=== PATIENT | male | born 1980 | race Caucasian/White ===

== ENCOUNTER 2020-03-07 11:28 | Outpatient (CLI) | payer OTHER, MEDICAID ==
--- NOTE | 2020-03-07 13:50 | XRAY Report ---
PROCEDURE: Lumbar Spine 2 View INDICATIONS: ACUTE RT SIDE LOW BACK PAIN, ACUTE RT HIP PAIN TECHNIQUE: 3 views of the lumbar spine were acquired. COMPARISON: None. FINDINGS: Bones: 5 [id number] vertebrae are present. There is a rudimentary disc at S1-S2. The lowest vi sualized ribs is well-developed and considered the T12 rib. There is slightly bony alignment. No donny tebral body compression fractures. No suspicious bony lesions. Soft tissues: Overlying bowel gas pattern is normal. No suspicious soft tissue calcifications. IMPRESSION: Rudimentary disc at S1-S2 which can predispose to low back pain. No trauma or subluxatio n found. For the purposes of this examination the lowest fully developed rib is prominent in size and considered associated with T12. Reviewed by: Alfred Charlton MD on 03/07/2020 1:49 PM PDT Approved by: Alfred Charlton MD on 03/07/2020 1:49 PM PDT Station ID: [id number]
--- NOTE | 2020-03-07 14:04 | XRAY Report ---
PROCEDURE: Hips 2V BILAT INDICATIONS: ACUTE RT SIDE LOW BACK PAIN, ACUTE RT HIP PAIN TECHNIQUE: 3 views of the hip were acquired. COMPARISON: None FINDINGS: Bones: No fractures or dislocations. No suspicious bony lesions. The visualized pelvic ring appear s intact. Symmetric hip joint osteoarthritis is present, mild bilaterally. Soft tissues: No suspicious soft tissue calcifications or masses. IMPRESSION: No trauma found. Symmetric mild hip joint osteoarthritis is incidentally noted. Reviewed by: Alfred Charlton MD on 03/07/2020 2:03 PM PDT Approved by: Alfred Charlton MD on 03/07/2020 2:03 PM PDT Station ID: [id number]
== END 2020-03-07 11:29 | disposition home or self-care (01) ==
LOC: DI.S 11:28
PROVIDERS: ATTEND Physician Assistant
DX: M51.87 Other intervertebral disc disorders, lumbosacral region (principal); M16.0 Bilateral primary osteoarthritis of hip
CPT/HCPCS: 72100; 73521

== ENCOUNTER 2021-10-24 08:22 | Outpatient (CLI) | payer MEDICAID ==
[2021-10-24 13:56] LABS: BASOPHILS % (AUTO) 0.6 %; EOSINOPHILS # (AUTO) 0.3 10^3/uL (0.0-0.7); EOSINOPHILS % (AUTO) 6.1 %; HCT - HEMATOCRIT 44.7 % (42.0-52.0); HGB - HEMOGLOBIN 15.2 g/dL (14.0-18.0); LYMPHOCYTES # (AUTO) 1.1 10^3/uL (1.5-3.5); LYMPHOCYTES % (AUTO) 22.5 %; MEAN CORPUSCULAR HEMOGLOBIN 29.3 pg (27.0-31.0); MEAN CORPUSCULAR VOLUME 86.1 fL (80.0-94.0); MEAN PLATELET VOLUME 9.7 fL (7.4-11.4); MONOCYTES # (AUTO) 0.6 10^3/uL (0.0-1.0); MONOCYTES % (AUTO) 12.5 %; NEUTROPHILS # (AUTO) 2.8 10^3/uL (1.5-6.6); NEUTROPHILS % (AUTO) 57.9 %; PLT - PLATELET COUNT 246 10^3/uL (130-450); RED BLOOD COUNT 5.19 10^6/uL (4.70-6.10); RED CELL DISTRIBUTION WIDTH 12.4 % (12.0-15.0); WHITE BLOOD COUNT 4.8 x10^3/uL (4.8-10.8)
[2021-10-24 14:37] LABS: ALBUMIN 4.5 g/dL (3.2-5.5); ALBUMIN/GLOBULIN RATIO 1.7 (1.0-2.2); ALKALINE PHOSPHATASE 49 IU/L (42-121); ALT ALANINE AMINOTRANSFERASE 29 IU/L (10-60); AST ASPARTATE AMINOTRANSFERASE 35 IU/L (10-42); BILIRUBIN,TOTAL 0.9 mg/dL (0.2-1.0); BUN - BLOOD UREA NITROGEN 12 mg/dL (6-20); CALCIUM 9.2 mg/dL (8.5-10.3); CARBON DIOXIDE - CO2 28 mmol/L (21-32); CHLORIDE 104 mmol/L (101-111); CREATININE 0.9 mg/dL (0.6-1.2); GFR - MDRD 93 (>89); GLUCOSE 84 mg/dL (70-100); LIPASE 36 U/L (22-51); POTASSIUM 4.2 mmol/L (3.5-5.0); SODIUM 139 mmol/L (135-145); TOTAL PROTEIN 7.2 g/dL (6.7-8.2)
[2021-10-24 14:38] LABS: CRP - C-REACTIVE PROTEIN < 1.0 mg/dL (0-1.0)
== END 2021-10-24 08:23 | disposition home or self-care (01) ==
LOC: LAB.S 08:22
PROVIDERS: ATTEND Registered Nurse
DX: R10.11 Right upper quadrant pain (principal); R19.7 Diarrhea, unspecified
CPT/HCPCS: 36415; 80053; 83690; 85025; 86140

== ENCOUNTER 2021-10-28 08:00 | Outpatient (CLI) | payer MEDICAID ==
[2021-10-28 15:22] LABS: FECAL OCCULT BLOOD (FIT) NEGATIVE (NEGATIVE)
[2021-10-28 15:36] LABS: H. PYLORIS ANTIGEN STL NEGATIVE (Negative)
[2021-10-30 16:08] LABS: GIARDIA LAMBLIA AG EIA Negative (Negative)
== END 2021-10-28 23:59 | disposition home or self-care (01) ==
LOC: LAB.S 08:00
PROVIDERS: ATTEND Registered Nurse
DX: R10.11 Right upper quadrant pain (principal); R19.7 Diarrhea, unspecified
CPT/HCPCS: 82274; 87045; 87046; 87177; 87328; 87329; 87338; 87427; 87493

== ENCOUNTER 2022-08-27 14:02 | Outpatient (CLI) | payer MEDICAID ==
[2022-08-27 19:51] LABS: BASOPHILS # (AUTO) 0.1 10^3/uL (0.0-0.1); BASOPHILS % (AUTO) 1.1 %; EOSINOPHILS # (AUTO) 0.5 10^3/uL (0.0-0.7); HGB - HEMOGLOBIN 14.5 g/dL (14.0-18.0); LYMPHOCYTES # (AUTO) 1.8 10^3/uL (1.5-3.5); LYMPHOCYTES % (AUTO) 32.7 %; MEAN CORPUSCULAR HEMOGLOBIN 28.5 pg (27.0-31.0); MEAN CORPUSCULAR HGB CONC 33.7 g/dL (32.0-36.0); MEAN CORPUSCULAR VOLUME 84.5 fL (80.0-94.0); MEAN PLATELET VOLUME 9.8 fL (7.4-11.4); MONOCYTES # (AUTO) 0.5 10^3/uL (0.0-1.0); MONOCYTES % (AUTO) 9.2 %; NEUTROPHILS # (AUTO) 2.6 10^3/uL (1.5-6.6); NEUTROPHILS % (AUTO) 47.8 %; PLT - PLATELET COUNT 230 10^3/uL (130-450); RED BLOOD COUNT 5.09 10^6/uL (4.70-6.10); RED CELL DISTRIBUTION WIDTH 12.7 % (12.0-15.0); WHITE BLOOD COUNT 5.4 x10^3/uL (4.8-10.8)
[2022-08-27 20:08] LABS: ALBUMIN 4.5 g/dL (3.2-5.5); ALKALINE PHOSPHATASE 47 IU/L (42-121); ALT ALANINE AMINOTRANSFERASE 28 IU/L (10-60); AST ASPARTATE AMINOTRANSFERASE 24 IU/L (10-42); BILIRUBIN,TOTAL 0.6 mg/dL (0.2-1.0); BUN - BLOOD UREA NITROGEN 20 mg/dL (6-20); CALCIUM 8.9 mg/dL (8.5-10.3); CARBON DIOXIDE - CO2 28 mmol/L (21-32); CHLORIDE 103 mmol/L (101-111); CHOL/HDL RATIO 2.4 (<5.0); CHOLESTEROL 180 mg/dL; CREATININE 0.8 mg/dL (0.6-1.2); GFR - MDRD 107 (>89); GLUCOSE 89 mg/dL (70-100); HDL CHOLESTEROL 74 mg/dL; LDL CHOLESTEROL,CALCULATED 73 mg/dL; POTASSIUM 3.7 mmol/L (3.5-5.0); SODIUM 137 mmol/L (135-145); TOTAL PROTEIN 6.8 g/dL (6.7-8.2); TRIGLYCERIDES 166 mg/dL; VLDL CHOLESTEROL 33 mg/dL
[2022-08-27 20:17] LABS: ESTIMATED AVERAGE GLUCOSE 97 mg/dL (70-100)
[2022-08-27 20:18] LABS: THYROID STIMULATING HORMONE 0.68 uIU/mL (0.34-5.60)
== END 2022-08-27 14:03 | disposition home or self-care (01) ==
LOC: LAB.S 14:02
PROVIDERS: ATTEND Nurse Practitioner Acute Care
DX: Z13.228 Encounter for screening for other metabolic disorders (principal); Z13.220 Encounter for screening for lipoid disorders; Z13.1 Encounter for screening for diabetes mellitus; Z13.29 Encounter for screening for other suspected endocrine disorder; Z13.0 Encounter for screening for diseases of the blood and blood-forming organs and certain disorders involving the immune mechanism
CPT/HCPCS: 36415; 80053; 80061; 83036; 83721; 84443; 85025

== ENCOUNTER 2022-10-21 14:11 | Outpatient (CLI) | payer MEDICAID ==
[2022-10-21 15:26] VITALS: BP 122/77
== END 2022-10-21 14:12 | disposition home or self-care (01) ==
LOC: MAC.MOP 14:11
PROVIDERS: ATTEND Nurse Practitioner Acute Care
DX: R07.89 Other chest pain (principal)
CPT/HCPCS: 93242

== ENCOUNTER 2022-11-10 10:30 | Outpatient (CLI) | payer MEDICAID | END 2022-11-10 10:31 | disposition home or self-care (01) | LOC: MAC.INF 10:30 | PROVIDERS: ATTEND Nurse Practitioner Acute Care | DX: I49.8 Other specified cardiac arrhythmias (principal); I49.1 Atrial premature depolarization; I45.89 Other specified conduction disorders; I49.3 Ventricular premature depolarization | CPT/HCPCS: 93244 ==

== ENCOUNTER 2023-03-24 09:14 | Outpatient (CLI) | payer MEDICAID ==
--- NOTE | 2023-03-24 09:40 | CARDIAC PROCEDURE NOTE ---
Stress Test Report Service Date: 03/24/23 Service Time: 09:30 Ordering Provider: Olga Lidia Whittaker ARNP Indication for Test: Assess long-standing intermittent chest discomfort. Significant Medical History: Steven is referred for a treadmill stress echocardiogram today, to evaluate a long history (he states 20 years or more) of intermittent, primarily non-exertional, chest discomfort, occurring several times daily. He has had clinical evaluation previously but no diagnostic testing until very recently. He reports that he is very active, working as a contractor and has several episodes daily of mild (1/10) pressure-like central chest discomfort that is not associated with radiation, nausea, vomiting or diaphoresis. In the absence of a prior diagnosis he has just "learned to live with it". As part of his evaluation he recently underwent an ambulatory rhythm monitor for 7 days that showed occasional ectopic rhythms and rare ectopy. Over this monitoring period he activated the device for symptoms 17 times, associated with his baseline rhythm and, he reports, done so for chest discomfort episodes. He has a notable family history of his father being diagnosed with hypertrophic cardiomyopathy, complicated by ventricular tachycardia and ventricular fibrillation, for which he has had an implanted defibrillator placed. Steven himself has not been advised to undergo any screening for this condition, which we will include in today's exam. Cardiac Risk Factors: Negative for hypertension, hyperlipidemia, diabetes and known family history of CAD; however patient has been a tobacco smoker off and on for almost 10 yrs, noting abstention for the past 10 months; his father has complex hypertrophic cardiomyopathy, as detailed further above. Type of Stress Test: ETT with Echocardiography Procedure: -Exercise Treadmill Test- After signing informed consent, the patient underwent echo imaging at rest and then performed treadmill exercise using a Kerwin protocol. The patient exercised for 10 minutes 47 seconds and achieved a peak heart rate of 164 (91 percent predicted maximum heart rate for age), and an estimated workload of 12.2 METS. The test was terminated due to fatigue/shortness of breath. Resting heart rate: 69 Peak heart rate: 164 Normal response to exercise. Resting BP: 133/98 Peak BP: 197/99 Elevated diastolic BP at rest with normal BP response to exercise. Rhythm during exercise: Sinus rhythm throughout, without ectopy. Symptoms: The patient described very brief and mild chest discomfort near peak exercise that resolved rapidly in early Recovery. EKG at rest showed normal sinus rhythm, normal in all aspects. EKG at peak stress showed J-point depression with upsloping ST segments, NOT meeting diagnostic criteria for ischemia. In Recovery HR rapidly/normally decreased towards normal, with slower decline in BP (152/62 at 6:00). Echo imaging, performed at rest and with stress, will be reported separately. Garcia Corona MD, was present throughout this treadmill stress study and supervised it in its entirety. Summary: 1) Exercise tolerance mildly below average for age and sex as evidenced by JOSE of 14%. 2) Normal resting EKG. 3) Adequate level of exercise was achieved on this treadmill stress test. 4) Normal BP response to exercise. 5) No ischemic changes by EKG criteria were seen at peak stress. 6) Preliminary echo image interpretation reveals normal left ventricular size, wall thickness and systolic function, with appropriate hyperdynamic augmentation of all segments with exercise, indicating no evidence of prior infarct or inducible ischemia. No significant valvular abnormality or elevation of estimated pulmonary artery systolic pressure seen on screening study. See separate report for more details. Conclusions and Recommendations: 1) Importantly, there were no morphologic features of hypertrophic cardi omyopathy seen on resting echo assessment. 2) There was no EKG or echo evidence of inducible ischemia, though patient did experience his usual chest discomfort at peak exercise, that was mild and cardenas sient. 3) The importance of remaining physically active and continuing to refrain from tobacco products was reinforced, following the study.
== END 2023-03-24 09:15 | disposition home or self-care (01) ==
LOC: DI 09:14
PROVIDERS: ATTEND Nurse Practitioner Acute Care
DX: R07.89 Other chest pain (principal); R94.31 Abnormal electrocardiogram [ECG] [EKG]; Z87.891 Personal history of nicotine dependence
CPT/HCPCS: 93350

== ENCOUNTER 2023-03-25 16:09 | Outpatient (CLI) | payer MEDICAID ==
--- NOTE | 2023-03-25 19:51 | XRAY Report ---
PROCEDURE: Sinus Complete INDICATIONS: HEADACHE TECHNIQUE: 4 views of the sinuses were acquired. COMPARISON: None FINDINGS: Sinuses: And suggestion of mucosal thickening or retention cyst noted in the left maxillary sinus Bones: No suspicious bony lesions. Nasal septum is midline. IMPRESSION: Left maxillary sinus mucosal thickening or retention cyst. Consider follow-up CT for full evaluation Reviewed by: Ravi Stewart MD on 03/25/2023 6:50 PM [facility] Approved by: Ravi Stewart MD on 03/25/2023 6:50 PM [facility] Station ID: [id number]
== END 2023-03-25 16:10 | disposition home or self-care (01) ==
LOC: DI.S 16:09
PROVIDERS: ATTEND Nurse Practitioner Acute Care
DX: R51.9 Headache, unspecified (principal); J34.9 Unspecified disorder of nose and nasal sinuses

== ENCOUNTER 2023-04-09 14:15 | Outpatient (CLI) | payer MEDICAID ==
[2023-04-09] MEDS ORDERED: iohexoL-300 100 ML VIAL IVP ONE (15:04)
--- NOTE | 2023-04-10 14:51 | CT Report ---
PROCEDURE: HEAD WO INDICATIONS: HEADACHE, CYST OF MAXILLARY SINUS TECHNIQUE: Noncontrast 4.5 mm thick angled axial sections acquired from the foramen magnum to the vertex. For r adiation dose reduction, the following was used: automated exposure control, adjustment of mA and/or kV according to patient size. COMPARISON: None. FINDINGS: Image quality: Excellent. CSF spaces: Basal cisterns are patent. No extra-axial fluid collections. Ventricles are normal in size and shape. Brain: No midline shift. No intracranial masses or hemorrhage. Strauss-white matter interface is norm al. Skull and face: Calvarium and visualized facial bones are intact, without suspicious lesions. Sinuses: Paranasal sinus mucosal thickening. Small left maxillary mucous retention cyst. The mastoids are clear. IMPRESSION: No acute intracranial pathology. Reviewed by: Vlad Babcock MD on 04/10/2023 2:50 PM PST Approved by: Vlad Babcock MD on 04/10/2023 2:50 PM PST Station ID: [id number]
--- NOTE | 2023-04-10 14:54 | CT Report ---
PROCEDURE: MAXILLOFACIAL W INDICATIONS: HEADACHE, CYST OF MAXILLARY SINUS CONTRAST: 100 TECHNIQUE: After the administration of intravenous contrast, 3.0 mm axial sections acquired from the mid-neck to the frontal sinuses, with coronal reformatting. For radiation dose reduction, the following was use d: automated exposure control, adjustment of mA and/or kV according to patient size. COMPARISON: None. FINDINGS: Image quality: Excellent. Soft tissues: No edema, masses, or fluid collections. No enlarged lymph nodes. Vascular: Visualized vascular structures appear patent throughout. Bony vascular foramina and canal s appear normal. Bones: Facial bones appear intact, without fractures, erosions, or destruction. Visualized portions of the skull base and auditory canals also appear normal. Sinuses: Bilateral maxillary sinus mucous retention cysts. Diffuse paranasal sinus mucosal thickening with partial opacification of the ethmoid air cells. Mastoid air cells are aerated. IMPRESSION: Diffuse paranasal sinus mucosal disease with partial opacification of the ethmoid air cells. Several bilateral maxillary sinus mucous retention cysts are present. Reviewed by: Vlad Babcock MD on 04/10/2023 2:52 PM PST Approved by: Vlad Babcock MD on 04/10/2023 2:52 PM PST Station ID: [id number]
== END 2023-04-09 14:16 | disposition home or self-care (01) ==
LOC: DI 14:15
PROVIDERS: ATTEND Nurse Practitioner Acute Care
DX: R51.9 Headache, unspecified (principal); J34.1 Cyst and mucocele of nose and nasal sinus; J32.4 Chronic pansinusitis
CPT/HCPCS: 70450; 70487; Q9967